=== PATIENT | male | born 1960 | race Caucasian/White ===

== ENCOUNTER 2023-04-11 15:35 | Emergency (ER) | payer MEDICAID ==
[~2023-04-11] VITALS: Ht 177.8 cm; Wt 105.0 kg
[2023-04-11 15:42] VITALS: BP 199/104; PULSE 97; RESP 18; TEMP 98.2; O2SAT 97
[2023-04-11 19:02] LABS: CLARITY URINE CLEAR (CLEAR); COLOR URINE YELLOW (YELLOW); GLUCOSE URINE NEGATIVE (NEGATIVE); KETONES URINE NEGATIVE (NEGATIVE); LEUKOCYTE ESTERASE URINE TRACE (NEGATIVE); NITRITE URINE NEGATIVE (NEGATIVE); OCCULT BLOOD URINE NEGATIVE (NEGATIVE); PROTEIN URINE 1+ (NEGATIVE)
[2023-04-11 20:01] LABS: BACTERIA URINE 1+; RBC URINE 0-2 /hpf (0-2); SQUAMOUS EPITHELIAL CELL URINE RARE /lpf (RARE/1+)
== END 2023-04-11 20:21 | disposition left against medical advice (07) ==
LOC: ER 15:35
DX: R05.9 Cough, unspecified (principal); R50.9 Fever, unspecified
CPT/HCPCS: 71045; 81003; 93005; 99285